=== PATIENT | female | born 1990 | race Caucasian/White ===

== ENCOUNTER 2018-02-09 22:34 | Emergency (ER) | payer OTHER ==
[2018-02-09 22:44] VITALS: BP 125/71; PULSE 66; TEMP 99; BMI 37.6
== END 2018-02-09 23:24 | disposition left against medical advice (07) ==
LOC: JER 22:34
DX: Z53.21 Procedure and treatment not carried out due to patient leaving prior to being seen by health care provider (principal)
CPT/HCPCS: 99281-25